=== PATIENT | male | born 1990 | race Caucasian/White ===

== ENCOUNTER 2017-12-06 16:52 | Emergency (ER) | payer SELFPAY ==
[~2017-12-06] VITALS: Ht 193 cm; Wt 84.1 kg
[2017-12-06 17:04] VITALS: BP 127/85
[2017-12-06] MEDS ORDERED: CEPHALEXIN500 M1 PO (17:26)
[2017-12-06] MEDS ORDERED: NORCO 325 MG-51 TA1 PO (17:26)
== END 2017-12-06 17:45 | disposition home or self-care (01) ==
LOC: ED 16:52
DX: K08.89 Other specified disorders of teeth and supporting structures (principal)

== ENCOUNTER 2017-12-26 14:26 | Emergency (ER) | payer SELFPAY ==
[~2017-12-26 14:26] MED LIST: CEPHALEXIN500 M1 PO; NORCO 325 MG-51 TA1 PO
[2017-12-26] MEDS ORDERED: CEPHALEXIN500 M1 PO (14:57)
== END 2017-12-26 15:03 | disposition home or self-care (01) ==
LOC: ED 14:26
DX: K08.89 Other specified disorders of teeth and supporting structures (principal)

== ENCOUNTER 2018-01-02 20:42 | Emergency (ER) | payer SELFPAY ==
[~2018-01-02] VITALS: Ht 193 cm; Wt 81.8 kg
[2018-01-02] MEDS ORDERED: CLEOCIN HCL150 M1 PO (22:03)
[2018-01-02 22:43] VITALS: BP 126/74
== END 2018-01-02 22:43 | disposition home or self-care (01) ==
LOC: ED 20:42
DX: K04.7 Periapical abscess without sinus (principal); K03.81 Cracked tooth; K08.89 Other specified disorders of teeth and supporting structures; Z88.5 Allergy status to narcotic agent; Z88.0 Allergy status to penicillin; F17.210 Nicotine dependence, cigarettes, uncomplicated
CPT/HCPCS: J1885